=== PATIENT | male | born 1995 | race Caucasian/White ===

== ENCOUNTER → 2019-09-07 | Outpatient (CLI) | payer OTHER | END | disposition home or self-care (01) | LOC: MRI 10:00 | DX: S23.3XXA Sprain of ligaments of thoracic spine, initial encounter (principal); M47.814 Spondylosis without myelopathy or radiculopathy, thoracic region; X58.XXXA Exposure to other specified factors, initial encounter; Y93.89 Activity, other specified; Y92.89 Other specified places as the place of occurrence of the external cause; Y99.8 Other external cause status ==

== ENCOUNTER 2020-07-19 12:20 | Emergency (ER) | payer OTHER ==
[~2020-07-19] VITALS: Ht 175.2 cm; Wt 70.3 kg
[2020-07-19] MEDS ORDERED: Tobrex Ophth S2.5 ML OPH (13:17)
== END 2020-07-19 13:37 | disposition home or self-care (01) ==
LOC: ED 12:20
DX: S05.02XA Injury of conjunctiva and corneal abrasion without foreign body, left eye, initial encounter (principal); X58.XXXA Exposure to other specified factors, initial encounter; Y93.89 Activity, other specified; Y92.89 Other specified places as the place of occurrence of the external cause; Y99.8 Other external cause status

== ENCOUNTER 2022-09-19 17:51 | Emergency (ER) | payer OTHER ==
[~2022-09-19] VITALS: Ht 406.4 cm; Wt 82.1 kg
[~2022-09-19 17:51] MED LIST: Tobrex Ophth S2.5 ML OPH
[2022-09-19 18:27] LABS: BASO % 0.6 % (0.0-1.0); EOS # 0.1 10*3/uL (0.0-0.4); EOS % 1.4 % (1.0-4.0); HEMATOCRIT 42.7 % (42.0-52.0); LYMPH # 1.5 10*3/uL (1.3-4.4); LYMPH % 21.7 % (27.0-41.0); MEAN CORPUSCULAR HGB 32.5 pg (27.0-31.0); MEAN CORPUSCULAR HGB CONC 33.5 g/dl (33.0-37.0); MONO # 0.6 10*3/uL (0.1-1.0); MONO % 9.1 % (3.0-9.0); NEUT # 4.7 10*3/uL (2.3-7.9); NEUT % 66.9 % (47.0-73.0); PLATELET COUNT AUTOMATED 234 10*3/uL (130-400); RED CELL DISTRI WIDTH 13.4 % (0-14.5)
[2022-09-19 18:43] LABS: ALKALINE PHOSPHATASE 83 U/L (46-116); BUN 14 mg/dl (9-23); CHLORIDE 103 mmol/L (98-107); LIPASE 37 U/L (12-53); SGPT/ALT 38 U/L (10-49); TOTAL PROTEIN 7.9 gm/dL (6.0-8.0)
[2022-09-19 18:44] LABS: ACT PARTIAL THROMBO TIME 21.3 SECONDS (20.0-32.1); INTERNATIONAL NORM RATIO 0.9 (2.0-3.5)
[2022-09-19] MEDS ORDERED: VAZALORE325 MG PO (21:07)
[2022-09-19] MEDS ORDERED: CLINDAMYCIN HC300 MG PO (21:07)
== END 2022-09-19 21:30 | disposition home or self-care (01) ==
LOC: ED 17:51
PROVIDERS: Physician Assistant
DX: I80.8 Phlebitis and thrombophlebitis of other sites (principal)

== ENCOUNTER 2022-12-01 14:41 | Emergency (ER) | payer OTHER ==
[~2022-12-01] VITALS: Wt 85.7 kg
[~2022-12-01 14:41] MED LIST changes: +CLINDAMYCIN HC300 MG PO; +VAZALORE325 MG PO
[2022-12-01 15:25] LABS: BASO % 0.3 % (0.0-1.0); HEMATOCRIT 46.8 % (42.0-52.0); LYMPH # 0.9 10*3/uL (1.3-4.4); LYMPH % 7.6 % (27.0-41.0); MEAN CELL VOLUME 96.7 fl (80.0-94.0); MEAN CORPUSCULAR HGB 33.9 pg (27.0-31.0); MEAN PLATELET VOLUME 10.2 fl (9.6-12.3); MONO # 0.6 10*3/uL (0.1-1.0); MONO % 4.4 % (3.0-9.0); NEUT # 10.8 10*3/uL (2.3-7.9); NEUT % 87.5 % (47.0-73.0); PLATELET COUNT AUTOMATED 225 10*3/uL (130-400); RED BLOOD COUNT 4.84 10*6/uL (4.50-5.90); WHITE BLOOD COUNT 12.4 10*3/uL (4.8-10.8)
[2022-12-01 15:37] LABS: ACT PARTIAL THROMBO TIME 26.5 SECONDS (20.0-32.1); INTERNATIONAL NORM RATIO 0.9 (2.0-3.5)
[2022-12-01 15:49] LABS: ALKALINE PHOSPHATASE 81 U/L (46-116); BUN 6 mg/dl (9-23); CHLORIDE 101 mmol/L (98-107); LIPASE 30 U/L (12-53); POTASSIUM 3.9 mmol/L (3.4-5.1); SGPT/ALT 40 U/L (10-49); TOTAL PROTEIN 7.8 gm/dL (6.0-8.0)
[2022-12-01] MEDS ORDERED: PEPCID20 MG PO (16:14)
== END 2022-12-01 16:27 | disposition home or self-care (01) ==
LOC: ED 14:41
PROVIDERS: Internal Medicine
DX: K29.00 Acute gastritis without bleeding (principal); R11.0 Nausea